=== PATIENT | female | born 1995 | race Caucasian/White ===

== ENCOUNTER 2022-08-18 20:42 | Emergency (ER) | payer OTHER ==
--- NOTE | 2022-08-18 20:45 | ERPHSYRPT ---
- History of Present Illness Time Seen by Provider: 08/18/22 20:45 Historian: patient Exam Limitations: no limitations Physician History: This is a 27-year-old white female patient who has had a total abdominal hysterectomy with bilateral salpingo-oophorectomy and presents with intermittent vaginal bleeding over the last month. She does not have an appointment to see her meter attendant for approximately 2 weeks and she was having worsening bleeding and having painful intercourse in the last few days. She did not feel that she could wait another couple weeks without being evaluated. She has not had diarrhea. She denies chest pain. She denies shortness of breath. Timing/Duration: intermittent, worse (Worsened in the last few days), other (Present for over a month intermittently) Activities at Onset: none Quality: pressure Abdominal Pain Onset Location: suprapubic (And pelvic pressure) Pain Radiation: no radiation Severity of Pain-Max: moderate Severity of Pain-Current: moderate Modifying Factors: Improves With: other (Nausea and vaginal bleeding) Associated Symptoms: nausea, other (Vaginal bleeding) Previous symptoms: other (Symptoms in the last month) Allergies/Adverse Reactions: amoxicillin trihydrate [From Augmentin] Allergy (Verified 08/18/22 21:21) potassium clavula *RETIRED-08/11/12 [From Augmentin] Allergy (Verified 08/18/22 21:21) sulfamethoxazole [From Bactrim] Allergy (Verified 08/18/22 21:21) trimethoprim [From Bactrim] Allergy (Verified 08/18/22 21:21) Home Medications: Divalproex Sodium ER 250 mg [Depakote EXTENDED RELEASE 250 MG] 250 mg PO TID 08/18/22 [History] Erenumab-Aooe [Aimovig Autoinjector] 70 mg SQ UD 08/18/22 [History] Serdexmethylphen/Dexmethylphen [Azstarys 39.2 mg-7.8 mg Cap] 1 cap PO DAILY [History] Topiramate 50 mg PO DAILY 08/18/22 [History] Venlafaxine HCl [Venlafaxine HCl ER] 75 mg PO DAILY 08/18/22 [History] estradioL [Estradiol (Once Weekly)] 1 each TD WEEKLY 08/18/22 [History] Hx Tetanus, Diphtheria Vaccination/Date Given: Yes Hx Influenza Vaccination/Date Given: No Hx Pneumococcal Vaccination/Date Given: No Travel Risk - International Travel Have you traveled outside of the country in past 3 weeks: No - Coronavirus Screening Are you exhibiting any of the following symptoms?: No Close contact with a COVID-19 positive Pt in past 14-21 Days: No - Review of Systems Constitutional: No Symptoms Eyes: No Symptoms Ears, Nose, & Throat: No Symptoms Respiratory: No Symptoms Cardiac: No Symptoms Abdominal/Gastrointestinal: Nausea, Other (Suprapubic tenderness and pressure) Genitourinary Symptoms: Vaginal Bleeding, Other (Suprapubic and pelvic pressure) Musculoskeletal: No Symptoms Skin: No Symptoms Neurological: No Symptoms Psychological: No Symptoms Endocrine: No Symptoms Hematologic/Lymphatic: No Symptoms Immunological/Allergic: No Symptoms All Other Systems: Reviewed and Negative - Past Medical History Pertinent Past Medical History: Yes Neurological History: No Pertinent History ENT History: No Pertinent History Cardiac History: No Pertinent History Respiratory History: No Pertinent History Endocrine Medical History: No Pertinent History Musculoskeletal History: No Pertinent History GI Medical History: No Pertinent History History: No Pertinent History Psycho-Social History: Depression Female Reproductive Disorders: Endometriosis Other Medical History: STILL BORN - Past Surgical History Past Surgical History: Yes Neuro Surgical History: No Pertinent History Cardiac: No Pertinent History Respiratory: No Pertinent History Gastrointestinal: No Pertinent History Genitourinary: No Pertinent History Musculoskeletal: No Pertinent History Female Surgical History: Other Other Surgical History: cyst removed, endometriosis - Social History Smoking Status: Current every day smoker Exposure to second hand smoke: Yes Drug Use: none Patient Lives Alone: No - Nursing Vital Signs Nursing Vital Signs: Initial Vital Signs Temperature 98.0 F 08/18/22 21:11 Pulse Rate 71 08/18/22 21:11 Blood Pressure 129/82 08/18/22 21:11 O2 Sat by Pulse Oximetry 100 08/18/22 21:11 Pain Scale Pain Intensity 5 - Physical Exam General Appearance: no apparent distress, alert, anxiety, thin Eye Exam: PERRL/EOMI, eyes nml inspection Ears, Nose, Throat Exam: normal ENT inspection, moist mucous membranes Neck Exam: normal inspection, non-tender, supple, full range of motion Respiratory Exam: normal breath sounds, lungs clear, airway intact, No chest tenderness, No respiratory distress Cardiovascular Exam: regular rate/rhythm, normal heart sounds, normal peripheral pulses Gastrointestinal/Abdomen Exam: soft, normal bowel sounds, tenderness, guarding (Prepubic region suprapubic), No rebound Pelvic Exam: not done Rectal Exam: not done Back Exam: normal inspection, normal range of motion, No CVA tenderness, No vertebral tenderness Extremity Exam: normal inspection, normal range of motion, pelvis stable Neurologic Exam: alert, oriented x 3, cooperative, web specialist II-XII nml as tested, normal mood/affect, nml cerebellar function, nml station & gait, sensation nml Skin Exam: normal color, warm, dry Lymphatic Exam: No adenopathy SpO2 Interpretation: normal O2 Delivery: Room Air - Course Nursing assessment & vital signs reviewed: Yes Ordered Tests: Active Orders 24 hr Category Date Time Status IV Insertion STAT Care 08/18/22 21:12 Active ABDOMEN AND PELVIS W/0 CONTRAS [CT] Stat Exams 08/18/22 21:13 Completed AMYLASE Stat Lab 08/18/22 21:20 Completed CBC W DIFF Stat Lab 08/18/22 21:20 Completed CMP Stat Lab 08/18/22 21:20 Completed LIPASE Stat Lab 08/18/22 21:20 Completed UA W/RFX UR CULTURE Stat Lab 08/18/22 21:20 Completed Medication Summary Discontinued Medications Generic Name Dose Route Start Last Admin Trade Name Freq PRN Reason Stop Dose Admin Hydromorphone HCl 1 mg 08/18/22 21:12 08/18/22 21:28 Hydromorphone 1 Mg/1ml Inj IV 08/18/22 21:13 1 mg STAT ONE Administration Hydromorphone HCl Confirm 08/18/22 21:23 Hydromorphone 1 Mg/1ml Inj Administered 08/18/22 21:24 Dose 1 mg .ROUTE .STK-MED ONE Sodium Chloride 1,000 mls @ 999 mls/hr 08/18/22 21:12 08/18/22 22:33 Sodium Chloride 0.9% 1000 Ml IV 08/18/22 22:12 Infused .Q1H1M STA Infusion Sodium Chloride Confirm 08/18/22 21:23 Sodium Chloride 0.9% 1000 Ml Administered 08/18/22 21:24 Dose 1,000 mls @ ud .ROUTE .STK-MED ONE Ondansetron HCl 4 mg 08/18/22 21:12 08/18/22 21:28 Ondansetron Hcl 4 Mg/2 Ml Vial IV 08/18/22 21:13 4 mg STAT ONE Administration Ondansetron HCl Confirm 08/18/22 21:23 Ondansetron Hcl 4 Mg/2 Ml Vial Administered 08/18/22 21:24 Dose 4 mg .ROUTE .STK-MED ONE Lab/Rad Data: Laboratory Result Diagrams 08/18/22 21:20 08/18/22 21:20 Laboratory Results 08/18/22 08/18/22 08/18/22 Range/Units 21:20 21:20 21:20 WBC 6.4 (4.0-10.5) x10^3/uL RBC 4.53 (4.1-5.4) x10^6/uL Hgb 14.3 (12.0-16.0) g/dL Hct 42.5 (35-47) % MCV 93.8 (78-100) fL MCH 31.6 (26-32) pg MCHC 33.6 (32-36) g/dL RDW 12.7 (11.5-14.0) % Plt Count 223 (150-450) x10^3/uL MPV 10.9 (7.5-11.0) fL Gran % 63.0 (36.0-66.0) % Immature Gran % (Auto) 0.2 (0.00-0.4) % Nucleat RBC Rel Count 0.0 (0.00-0.1) % Eos # (Auto) 0.01 (0-0.5) x10^3/uL Immature Gran # (Auto) 0.01 (0.00-0.03) x10^3u/L Absolute Lymphs (auto) 2.03 (1.0-4.6) x10^3/uL Absolute Monos (auto) 0.28 (0.0-1.3) x10^3/uL Absolute Nucleated RBC 0.00 (0.00-0.01) x10^3u/L Lymphocytes % 31.9 (24.0-44.0) % Monocytes % 4.4 (0.0-12.0) % Eosinophils % 0.2 (0.00-5.0) % Basophils % 0.3 (0.0-0.4) % Absolute Granulocytes 4.01 (1.4-6.9) x10^3/uL Basophils # 0.02 (0-0.4) x10^3/uL Sodium 139 (137-145) mmol/L Potassium 3.6 (3.5-5.1) mmol/L Chloride 104 (98-107) mmol/L Carbon Dioxide 23 (22-30) mmol/L Anion Gap 15.5 H (5-15) MEQ/L BUN 13 (7-17) mg/dL Creatinine 0.70 (0.52-1.04) mg/dL Estimated GFR > 60.0 ML/MIN Glucose 92 (74-106) mg/dL Calcium 8.9 (8.4-10.2) mg/dL Total Bilirubin 0.40 (0.2-1.3) mg/dL AST 26 (14-36) U/L ALT 27 (0-35) U/L Alkaline Phosphatase 59 (38-126) U/L Serum Total Protein 8.1 (6.3-8.2) g/dL Albumin 4.5 (3.5-5.0) g/dL Amylase 102 (30-110) U/L Lipase 92 (23-300) U/L Urine Color Yellow (Yellow) Urine Appearance Clear (Clear) Urine pH 7.5 (4.6-8.0) Ur Specific Kincaid 1.015 (1.005-1.030) Urine Protein Negative (Negative) Urine Glucose (UA) Negative (Negative) mg/dL Urine Ketones Negative (Negative) Urine Blood Negative (Negative) Urine Nitrite Negative (Negative) Urine Bilirubin Negative (Negative) Urine Urobilinogen 0.2 (0.2) mg/dL Ur Leukocyte Esterase Negative (Negative) U Hyaline Cast (Auto) NONE SEEN (0-2) /LPF Urine Microscopic RBC 0-2 (0-5) /HPF Urine Microscopic WBC 0-2 (0-5) /HPF Ur Epithelial Cells Rare (None Seen) /HPF Urine Bacteria None Seen (None Seen) /HPF Urine Culture Reflexed NO (NO) - Progress Progress: improved Progress Note: 08/18/22 23:51 CAT scan of the abdomen pelvis without contrast shows a bulky residual cervical stump. MR pelvic study is recommended for better evaluation and definition. There are postoperative changes in the lower anterior abdominal wall with ill- defined soft tissue attenuation lesion in the subcutaneous region on the left paramedian region measuring 18 mm x 13 mm. Possible postop scar or scar endo metriosis. This patient's medical issue is 1 of moderate complexity the level of complexity and the work-up performed is based on the review of the patient's past medical history, review of the patient's medication list, review of the patient's drug allergy list, history of present illness and physical findings on examination. The work-up performed included placement of intravenous line with infusion of normal saline solution, CBC, CMP, urinalysis, amylase and lipase, CT scan of the abdomen pelvis without contrast. The above-stated findings are noted. Patient will be discharged home and given instructions to follow-up with her meter attendant tomorrow by phone, 08/19/2022 to arrange further evaluation management. We will provide the patient with 2 take-home pain medications. Counseled pt/family regarding: lab results, diagnosis, need for follow-up, rad results Medical Desision Making - Discussion of managment Agreed on:: Treatment plan, need for follow-up - Diagnostic Testing Radiological Interpretation: Reviewed by me, Teleradiologist Report - Risk of complications The pt has a mod risk of morbidity or mortality based on: Need for prescription drug management (Take home pain medicine #[id number] .) - Departure Departure Disposition: Home Clinical Impression: Pelvic pain, Vaginal bleeding Condition: Stable Critical Care Time: No Referrals: ROCKY ORTIZ [facility] ACCOUNT MANAGER [Primary Care Provider] - Follow up/PCP as directed Additional Instructions: Take your pain medicine as prescribed. Follow-up with your meter attendant tomorrow, 08/19/2022 to make arrangements for an earlier follow-up appointment.
[2022-08-18] MEDS ORDERED: Sodium Chloride 0.9% 1000 ML 1,000 ML IV STA (21:12)
[2022-08-18] MEDS ORDERED: Hydromorphone 1 mg/ml Injection IV ONE (21:12)
[2022-08-18] MEDS ORDERED: Zofran 4 MG/2 ML VIAL IV ONE (21:12)
[2022-08-18] MEDS ORDERED: Zofran 4 MG/2 ML VIAL ONE (21:23)
[2022-08-18] MEDS ORDERED: Hydromorphone 1 mg/ml Injection ONE (21:23)
[2022-08-18] MEDS ORDERED: Sodium Chloride 0.9% 1000 ML 1,000 ML ONE (21:23)
[2022-08-18 21:24] LABS: Absolute Neutrophil Ct (ANC) 4.01 x10^3/uL (1.4-6.9); BASOPHIL % 0.3 % (0.0-0.4); Basophil (Absolute #) 0.02 x10^3/uL (0-0.4); Eosinophil % 0.2 % (0.00-5.0); Eosinophil (Absolute #) 0.01 x10^3/uL (0-0.5); Hematocrit 42.5 % (35-47); Hemoglobin 14.3 g/dL (12.0-16.0); IMMATURE GRAN # 0.01 x10^3u/L (0.00-0.03); IMMATURE GRAN % 0.2 % (0.00-0.4); Lymphocyte (Absolute #) 2.03 x10^3/uL (1.0-4.6); Lymphocytes % 31.9 % (24.0-44.0); Mean Cell Volume 93.8 fL (78-100); Mean Corpuscular Hemoglobin 31.6 pg (26-32); Mean Corpuscular Hgb Concent. 33.6 g/dL (32-36); Mean Platelet Volume 10.9 fL (7.5-11.0); Monocyte (Absolute #) 0.28 x10^3/uL (0.0-1.3); Monocytes % 4.4 % (0.0-12.0); Platelet Count 223 x10^3/uL (150-450); Red Blood Count 4.53 x10^6/uL (4.1-5.4); Red Cell Distribution Width 12.7 % (11.5-14.0); White Blood Count 6.4 x10^3/uL (4.0-10.5)
[2022-08-18 21:36] LABS: Appearance Clear (Clear); Bacteria None Seen /HPF (None Seen); Bilirubin Negative (Negative); Blood Negative (Negative); Epithelial Cells Rare /HPF (None Seen); Glucose, Urine Negative (Negative); Hyaline Casts NONE SEEN /LPF (0-2); Ketones Negative (Negative); Leukocyte Esterase Negative (Negative); Nitrite Negative (Negative); Ph 7.5 (4.6-8.0); Protein,Urine Dip Negative (Negative); RBC 0-2 /HPF (0-5); Specific Gravity 1.015 (1.005-1.030); Urobilinogen 0.2 mg/dL (0.2); WBC 0-2 /HPF (0-5)
[2022-08-18 21:40] LABS: ALBUMIN 4.5 g/dL (3.5-5.0); ALKALINE PHOSPHATASE 59 U/L (38-126); AMYLASE 102 U/L (30-110); ANION GAP 15.5 MEQ/L (5-15); BLOOD UREA NITROGEN 13 mg/dL (7-17); CHLORIDE 104 mmol/L (98-107); Calcium 8.9 mg/dL (8.4-10.2); Carbon Dioxide 23 mmol/L (22-30); EST GLOMERULAR FILTRATION RATE > 60.0 ML/MIN; Glucose 92 mg/dL (74-106); LIPASE 92 U/L (23-300); Potassium 3.6 mmol/L (3.5-5.1); SGOT/AST 26 U/L (14-36); SGPT/ALT 27 U/L (0-35); SODIUM 139 mmol/L (137-145); Total Protein 8.1 g/dL (6.3-8.2)
[2022-08-18 21:45] LABS: ADD URINE CULTURE? NO (NO)
--- NOTE | 2022-08-18 23:46 | XRAY ---
CLINICAL HISTORY:Vaginal bleeding; pelvic pain COMPARISON:None; TECHNIQUES:CT scan of the abdomen and pelvis was performed without contrast. Coronal and sagittal reconstructive images were also obtained; FINDINGS: Abdomen: The liver is of average size. No focal or diffuse parenchymal abnormality. The intrahepatic biliary radicals and the bile ducts are normal. The spleen, pancreas, adrenal glands are unremarkable. The kidneys are unremarkable. They are normal in size and shape. No calculi or hydronephrosis. The gallbladder is distended. There is no evidence of wall thickening/ pericholecystic collection. The ascending colon, the transverse colon, the descending colon, visualized small bowel loops are unremarkable. There is no evidence of significant enlargement of the mesenteric or retroperitoneal lymph nodes. Pelvis: Post hysterectomy status. The residual cervical stump appears slightly bulky, however, fine details could not be commented upon plain CT study. Post-operative changes seen in lower anterior abdominal wall with an ill-defined soft tissue attenuation lesion in the subcutaneous region on left paramedian aspect, abutting the underlying rectus abdominis muscle, measuring 18 x 13 mm. Possible differentials include post-operative scar, scar endometriosis. Suggested clinical correlation and further evaluation. The urinary bladder is unremarkable. The rectosigmoid colon is unremarkable. No evidence of pelvic lymphadenopathy. No definite bony abnormalities could be depicted. IMPRESSION: Post hysterectomy status. Bulky residual cervical stump, however, fine details could not be commented upon plain CT study. MR pelvis and recommended for better evaluation. Post-operative changes seen in lower anterior abdominal wall with an ill-defined soft tissue attenuation lesion in the subcutaneous region on left paramedian aspect, abutting the underlying rectus abdominis muscle, measuring 18 x 13 mm. Possible differentials include post-operative scar, scar endometriosis. Suggested clinical correlation and further evaluation. Electronically Signed by: Quinn Davis MD. (08/18/2022 22:41:04 EDGE SETTER)
[2022-08-18] MEDS ORDERED: NORCO 5/325 MG PO ONE (23:55)
[2022-08-19] MEDS ORDERED: NORCO 5/325 MG ONE (00:01)
[2022-08-19 00:10] VITALS: BP 120/73; PULSE 57; O2SAT 99
== END 2022-08-19 00:19 | disposition home or self-care (01) ==
LOC: ED 20:42
DX: R10.2 Pelvic and perineal pain (principal); N93.9 Abnormal uterine and vaginal bleeding, unspecified; Z79.899 Other long term (current) drug therapy; Z72.0 Tobacco use
CPT/HCPCS: 36000; 36415; 74176; 80053; 81001; 82150; 83690; 85025; 96360; 96374; 96375; 99284; J1170; J2405; A9270-GY